=== PATIENT | male | born 1950 | race Caucasian/White ===

== ENCOUNTER 2020-04-27 19:08 | Inpatient (IN) | payer MEDICARE, OTHER ==
[2020-04-27] MEDS ORDERED: ACETAMINOPHEN TAB 325 MG TAB PO PRN (22:52)
[2020-04-27] MEDS ORDERED: ALBUTEROL HFA INHALER INHALATION PRN (23:00)
[2020-04-27] MEDS ORDERED: BENZONATATE 100 MG CAP PO PRN (23:00)
[2020-04-27] MEDS ORDERED: ONDANSETRON 4 MG/2 ML VIAL IVP PRN (23:00)
[2020-04-28] MEDS: LEVOTHYROXINE 125 MCG TAB PO SCH (05:55)
--- NOTE | 2020-04-28 07:23 | XR ---
EXAMINATION TYPE: XR chest 1V portable DATE OF EXAM: 04/28/2020 HISTORY: possible covid 19 pneumonia. REFERENCE: Previous study dated 04/27/2020. FINDINGS: There is a linear opacity in the right midlung. Lungs otherwise clear. Pleural space are cl ear. The heart is not enlarged. IMPRESSION: I CANNOT EXCLUDE AN EARLY INFILTRATE IN THE RIGHT MIDLUNG.
[2020-04-28 07:44] LABS: Basophils % (A) 0 %; Eosinophils % (A) 0 %; Lymphocytes # (A) 0.5 k/uL (1.0-4.8); Lymphocytes % (A) 21 %; MCH 29.7 pg (25.0-35.0); MCHC 33.4 g/dL (31.0-37.0); MCV 88.8 fL (80.0-100.0); Mean Platelet Volume 7.3; Monocytes # (A) 0.3 k/uL (0-1.0); Monocytes % (A) 11 %; Neutrophils # (A) 1.7 k/uL (1.3-7.7); Neutrophils % (A) 66 %; Platelet Count 137 k/uL (150-450); RBC 4.73 m/uL (4.30-5.90); RDW 12.6 % (11.5-15.5); WBC 2.5 k/uL (3.8-10.6)
[2020-04-28 07:58] LABS: Calcium 7.4 mg/dL (8.4-10.2); Potassium 4.4 mmol/L (3.5-5.1)
[2020-04-28] MEDS: amLODIPine 10 MG TAB PO SCH (08:14)
[2020-04-28] MEDS: FAMOTIDINE 20 MG TAB PO SCH ×2 (08:14→21:08)
[2020-04-28] MEDS: ASPIRIN 81 MG PO SCH (08:14)
[2020-04-28] MEDS ORDERED: HEPARIN SODIUM,PORCINE 5,000 UNIT/ML 1 ML VIAL SQ SCH (09:00)
--- NOTE | 2020-04-28 09:07 | P.HPIM ---
History of Present Illness This is a pleasant 69 years old male with multiple medical problems as below. Patient presents because of respiratory symptoms. Patient has been having coughing with no much of phlegm and generalized weakness for about one week His was recently diagnosed with gallbladder infection. 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 He denies chest pain vitals and labs are reviewed, his saturation 94% on 3 L oxygen via nasal cannula. showing low WBC of 2.5K, lymphopenia and 0.5. sodium slightly low at 33, creatinine normal. Chest x-ray: Possible early infiltrate in the right mid lung Review of Systems CONSTITUTIONAL: No fever, no malaise, no fatigue. HEENT: No recent visual problems or hearing problems. Denied any sore throat. CARDIOVASCULAR: No orthopnea, PND, no palpitations, no syncope. PULMONARY: no hemoptysis. GASTROINTESTINAL: No diarrhea, no nausea, no vomiting, no abdominal pain. Normoactive bowel sounds. NEUROLOGICAL: No headaches, no weakness, no numbness. HEMATOLOGICAL: Denies any bleeding or petechiae. GENITOURINARY: Denies any burning micturition, frequency, or urgency. MUSCULOSKELETAL/RHEUMATOLOGICAL: Denies any joint pain, swelling, or any muscle pain. ENDOCRINE: Denies any polyuria or polydipsia. Past Medical History Past Medical History: Asthma, Hypertension, Thyroid Disorder Additional Past Medical History / Comment(s): deviated septum, History of Any Multi-Drug Resistant Organisms: None Reported Past Anesthesia/Blood Transfusion Reactions: No Reported Reaction Past Psychological History: No Psychological Hx Reported Smoking Status: Never smoker Past Alcohol Use History: None Reported Past Drug Use History: None Reported Medications and Allergies Home Medications Medication Instructions Recorded Confirmed Type Albuterol Sulfate [Proventil Hfa] 2 puff INHALATION RT-Q6H PRN 04/27/20 04/27/20 History Aspirin EC [Ecotrin Low Dose] 81 mg PO DAILY 04/27/20 04/27/20 History Budesonide/Formoterol Fumarate 2 puff INHALATION RT-BID 04/27/20 04/27/20 History [Symbicort 80-4.5 Mcg Inhaler] Levothyroxine Sodium [Synthroid] 125 mcg PO DAILY 04/27/20 04/27/20 History Xeomega Complex (Doterra) 4 cap PO DAILY 04/27/20 04/27/20 History amLODIPine [Norvasc] 10 mg PO DAILY 04/27/20 04/27/20 History Allergies Allergy/AdvReac Type Severity Reaction Status Date / Time cephalexin [From Keflex] Allergy Swelling Verified 04/27/20 22:26 sulfamethoxazole Allergy Unknown Verified 04/27/20 22:26 [From Bactrim] Childhood trimethoprim [From Bactrim] Allergy Unknown Verified 04/27/20 22:26 Childhood Physical Exam Vitals: Vital Signs Temp Pulse Resp BP Pulse Ox 04/28/20 05:09 98.0 F 62 18 115/68 94 L 04/28/20 00:34 98.2 F 60 18 108/68 94 L 04/27/20 22:20 98.0 F 64 20 143/79 93 L Intake and Output 04/27/20 04/28/20 04/28/20 22:59 06:59 14:59 Output Total 325 Balance -325 Output: Urine 325 Other: # Voids 1 Weight 89.4 kg 89.4 kg GENERAL: The patient is alert and oriented x3, not in any acute distress. Well developed, well nourished. HEENT: Pupils are round and equally reacting to light. EOMI. No scleral icterus. No conjunctival pallor. Normocephalic, atraumatic. No pharyngeal erythema. No thyromegaly. CARDIOVASCULAR: S1 and S2 present. No murmurs, rubs, or gallops. PULMONARY: Chest is clear to auscultation, no wheezing or crackles. ABDOMEN: Soft, nontender, nondistended, normoactive bowel sounds. No palpable or ganomegaly. MUSCULOSKELETAL: No joint swelling or deformity. EXTREMITIES: No cyanosis, clubbing, or pedal edema. NEUROLOGICAL: Gross neurological examination did not reveal any focal deficits. SKIN: No rashes. No petechiae Results CBC & Chem 7: 04/28/20 07:19 04/28/20 07:19 Labs: Abnormal Lab Results - Last 24 Hours (Table) 04/28/20 04/28/20 Range/Units 07: 07:19 WBC 2.5 L (3.8-10.6) k/uL Plt Count 137 L (150-450) k/uL Lymphocytes # 0.5 L (1.0-4.8) k/uL Sodium 133 L (137-145) mmol/L Carbon Dioxide 21 L (22-30) mmol/L BUN 26 H (9-20) mg/dL Glucose 104 H (74-99) mg/dL Calcium 7.4 L (8.4-10.2) mg/dL Thrombosis Risk Factor Assmnt - Choose All That Apply Any of the Below Risk Factors Present?: No Other Risk Factors: No Other congenital or acquired thrombophilia - If yes, enter type in comment: No Thrombosis Risk Factor Assessment Level: Very Low Risk Assessment and Plan Assessment: Suspected covid infection, possible early infiltrate in the right mid lung Hypertension Hypothyroidism History of asthma Plan: This is a pleasant 69 years old male who presents with suspected Covid. Continue with breathing treatment through a ventral inhaler and Symbicort inhaler. We'll consult pulmonary team Labs and medication were reviewed.. Continue same treatment. Continue with symptomatic treatment. Resume home medication. Monitor lytes and vitals. DVT and GI prophylaxis. Further recommendations of the clinical course of the patient DVT prophylaxis: Lovenox 40 mg daily GI Prophylaxis: Pepcid Prognosis is guarded
[2020-04-28] MEDS: SYMBICORT 80-4.5 MCG INHALER INHALATION SCH ×3 (09:26→21:23)
--- NOTE | 2020-04-28 12:20 | P.CNPUL ---
History of Present Illness Consult date: 04/28/20 Requesting physician: Franko E Marcelo Reason for consult: dyspnea, abnormal CXR/CT (Early infiltrate right midlung) Chief complaint: Weakness History of present illness: This is a pleasant 69-year-old gentleman who has a history of hypertension, hypothyroidism, asthma. He had presented to [place] emergency room yesterday with a 3 to four-day complaints of increased weakness, fatigue, short ness of breath. His had recently tested positive for CoVID 19. He was screened earlier this week at the [place] [facility]. Results not available. He was transferred here as a direct admit from [place] [facility]. Chest x-ray reveals possible early infiltrate in the right midlung. White count 2.5. Hemoglobin 14.0. Lymphocytes 0.5. Sodium 133. Potassium 4.4. Creatinine 1.25. He's been initiated on Symbicort, albuterol, Tessalon Perles. He is seen today in consultation on the selective care unit. Awake and alert in no acute distress. Breathing a bit easier today compared to yesterday. He remains afebrile. He is maintaining O2 saturations in the 90s on 3 L/m per nasal cannula. Review of Systems REVIEW OF SYSTEMS: CONSTITUTIONAL: Generalized fatigue and weakness. Denies any recent significant weight loss or weight gain. EYES: Denies change in vision. EARS, NOSE, MOUTH, THROAT: Denies headaches, denies sore throat. CARDIOVASCULAR: Denies chest pain, palpitations or syncopal episodes. RESPIRATORY: Positive for shortness of breath, cough, congestion no hemoptysis. GASTROINTESTINAL: Denies change in appetite, denies abdominal pain GENITOURINARY: Denies hematuria, denies infections. MUSKULOSKELETAL: Denies pain, denies swelling. INTEGUMENTARY: Denies rash, denies eczema. NEUROLOGICAL: Denies recent memory loss, no recent seizure activity. PSYCHIATRIC: Denies anxiety, denies depression. HEMATOLOGIC/LYMPHATIC: Denies anemia, denies enlarged lymph nodes. Past Medical History Past Medical History: Asthma, Hypertension, Thyroid Disorder Additional Past Medical History / Comment(s): deviated septum, History of Any Multi-Drug Resistant Organisms: None Reported Past Anesthesia/Blood Transfusion Reactions: No Reported Reaction Past Psychological History: No Psychological Hx Reported Smoking Status: Never smoker Past Alcohol Use History: None Reported Past Drug Use History: None Reported Medications and Allergies Home Medications Medication Instructions Recorded Confirmed Type Albuterol Sulfate [Proventil Hfa] 2 puff INHALATION RT-Q6H PRN 04/27/20 04/27/20 History Aspirin EC [Ecotrin Low Dose] 81 mg PO DAILY 04/27/20 04/27/20 History Budesonide/Formoterol Fumarate 2 puff INHALATION RT-BID 04/27/20 04/27/20 History [Symbicort 80-4.5 Mcg Inhaler] Levothyroxine Sodium [Synthroid] 125 mcg PO DAILY 04/27/20 04/27/20 History Xeomega Complex (Doterra) 4 cap PO DAILY 04/27/20 04/27/20 History amLODIPine [Norvasc] 10 mg PO DAILY 04/27/20 04/27/20 History Allergies Allergy/AdvReac Type Severity Reaction Status Date / Time cephalexin [From Keflex] Allergy Swelling Verified 04/27/20 22:26 sulfamethoxazole Allergy Unknown Verified 04/27/20 22:26 [From Bactrim] Childhood trimethoprim [From Bactrim] Allergy Unknown Verified 04/27/20 22:26 Childhood Physical Exam Vitals: Vital Signs Temp Pulse Resp BP Pulse Ox 04/28/20 08:00 96.4 F L 60 18 113/63 96 04/28/20 05:09 98.0 F 62 18 115/68 94 L 04/28/20 00:34 98.2 F 60 18 108/68 94 L 04/27/20 22:20 98.0 F 64 20 143/79 93 L Intake and Output 04/27/20 04/28/20 04/28/20 22:59 06:59 14:59 Intake Total 240 Output Total 325 Balance -325 240 Intake: Oral 240 Output: Urine 325 Other: # Voids 1 Weight 89.4 kg 89.4 kg GENERAL EXAM: Alert, pleasant 61-year-old gentleman, on 3 L nasal cannula, comfortable in no apparent distress. HEAD: Normocephalic. EYES: Normal reaction of pupils, equal size. NOSE: Clear with pink turbinates. THROAT: No erythema or exudates. NECK: No masses, no JVD. CHEST: No chest wall deformity. LUNGS: Equal air entry with no crackles, wheeze, rhonchi or dullness. CVS: S1 and S2 normal with no audible murmur, regular rhythm. ABDOMEN: No hepatosplenomegaly, normal bowel sounds, no guarding or rigidity. SPINE: No scoliosis or deformity SKIN: No rashes CENTRAL NERVOUS SYSTEM: No focal deficits, tone is normal in all 4 extremities. EXTREMITIES: There is no peripheral edema. No clubbing, no cyanosis. Peripheral pulses are intact. Results - Laboratory Findings CBC and BMP: 04/28/20 07:04/28/20 07:19 Abnormal lab findings: Abnormal Labs 04/28/20 04/28/20 07:19 07:19 WBC 2.5 L Plt Count 137 L Lymphocytes # 0.5 L Sodium 133 L Carbon Dioxide 21 L BUN 26 H Glucose 104 H Calcium 7.4 L - Diagnostic Findings Chest x-ray: image reviewed Assessment and Plan Assessment: 1 Acute hypoxemic respiratory failure secondary to possible early right midlung pneumonia, rule out CoVID 19 infection 2 Generalized fatigue and weakness secondary to above 3 Acute exacerbation of mild intermittent chronic bronchial asthma secondary to above 4 History of hypertension 5 Hypothyroidism 6 Gastroesophageal reflux disease Plan: The patient was seen and evaluated by Dr. Thorne Chest x-ray and labs reviewed Covid 19 test pending Obtain inflammatory markers Continue isolation precautions Continue Symbicort and albuterol Titrate down the FiO2 as tolerated Lovenox for DVT prophylaxis Pepcid for GI prophylaxis We will continue to follow and make further recommendations based on his clinical status I, the cosigning physician, performed a history & physical examination of the patient. Lungs sounds are clear. Maintaining good O2 saturations in the 90s on 3 L/m per nasal cannula. I discussed the assessment and plan of care with my nurse practitioner, Chen Johnson. I attest to the above note as dictated by her. Time with Patient: Greater than 30
[2020-04-28] MEDS: ENOXAPARIN 40 MG/0.4 ML SYRINGE SQ SCH (12:50)
[2020-04-28 13:06] VITALS: BMI 28.3
[2020-04-29] MEDS: LEVOTHYROXINE 125 MCG TAB PO SCH (06:16)
[2020-04-29 06:59] LABS: Basophils % (A) 0 %; Eosinophils % (A) 0 %; HCT 41.2 % (39.0-53.0); HGB 13.7 gm/dL (13.0-17.5); Lymphocytes # (A) 0.7 k/uL (1.0-4.8); Lymphocytes % (A) 19 %; MCH 29.5 pg (25.0-35.0); MCHC 33.2 g/dL (31.0-37.0); MCV 88.9 fL (80.0-100.0); Monocytes # (A) 0.2 k/uL (0-1.0); Monocytes % (A) 5 %; Neutrophils # (A) 2.6 k/uL (1.3-7.7); Neutrophils % (A) 75 %; Platelet Count 137 k/uL (150-450); RBC 4.63 m/uL (4.30-5.90); RDW 12.5 % (11.5-15.5); WBC 3.5 k/uL (3.8-10.6)
[2020-04-29 07:21] LABS: C Reactive Protein 47.6 mg/L (<10.0); Calcium 7.4 mg/dL (8.4-10.2); Potassium 4.1 mmol/L (3.5-5.1)
[2020-04-29] MEDS: ASPIRIN 81 MG PO SCH (08:47)
[2020-04-29] MEDS: FAMOTIDINE 20 MG TAB PO SCH ×2 (08:47→20:38)
[2020-04-29] MEDS: amLODIPine 10 MG TAB PO SCH (08:47)
[2020-04-29] MEDS: ENOXAPARIN 40 MG/0.4 ML SYRINGE SQ SCH ×2 (08:48→11:28)
[2020-04-29] MEDS: SYMBICORT 80-4.5 MCG INHALER INHALATION SCH ×2 (08:54→20:04)
[2020-04-29] MEDS: dexAMETHasone 2 MG TAB PO SCH (11:37)
--- NOTE | 2020-04-29 15:04 | P.PN ---
Subjective This is a pleasant 69 years old male with multiple medical problems as below. Patient presents because of respiratory symptoms. Patient has been having coughing with no much of phlegm and generalized weakness for about one week His was recently diagnosed with gallbladder infection. 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 He denies chest pain vitals and labs are reviewed, his saturation 94% on 3 L oxygen via nasal cannula. showing low WBC of 2.5K, lymphopenia and 0.5. sodium slightly low at 33, creatinine normal. Chest x-ray: Possible early infiltrate in the right mid lung 01/29/2020 Patient is breathing quietly, slightly tachypneic. He still have coughing. He is on inhaler. Today has low-grade temperature of 100.1 this afternoon. He is still on 3 L and saturating 94% . rest of vitals are stable Labs showing WBC of 3.5K, platelet slightly low at 1:30 7K, his lymphopenic, sodium is 1:30, creatinine 1.3, d-dimer is negative at 0.49, lactate dehydrogenase is elevated at 747 and C-reactive protein elevated at 47.6 He was a started today on dexamethasone, we'll add doxycycline As per staff patient has been informed by the health Department that he has positive result for Covid 19, other Covid test his been requested today. We'll try to get documented results from the health department Review of Systems CONSTITUTIONAL: No fever, no malaise, no fatigue. HEENT: No recent visual problems or hearing problems. Denied any sore throat. CARDIOVASCULAR: No orthopnea, PND, no palpitations, no syncope. PULMONARY: no hemoptysis. GASTROINTESTINAL: No diarrhea, no nausea, no vomiting, no abdominal pain. Normoactive bowel sounds. NEUROLOGICAL: No headaches, no weakness, no numbness. HEMATOLOGICAL: Denies any bleeding or petechiae. GENITOURINARY: Denies any burning micturition, frequency, or urgency. MUSCULOSKELETAL/RHEUMATOLOGICAL: Denies any joint pain, swelling, or any muscle pain. ENDOCRINE: Denies any polyuria or polydipsia. Active Medications Generic Name Dose Route Start Last Admin Trade Name Freq PRN Reason Stop Dose Admin Acetaminophen 650 mg 04/27/20 22:52 04/29/20 11:37 Tylenol Tab PO 650 mg Q6HR PRN Administration Fever and/ or Pain Albuterol Sulfate 2 puff 04/27/20 23:00 Ventolin Hfa Inhaler INHALATION RT-Q6H PRN Shortness Of Breath Amlodipine Besylate 10 mg 04/28/20 09:00 04/29/20 08:47 Norvasc PO 10 mg DAILY CARLOS Administration Aspirin 81 mg 04/28/20 09:00 04/29/20 08:47 Aspirin PO 81 mg DAILY CARLOS Administration Benzonatate 100 mg 04/27/20 23:00 04/28/20 08:14 Tessalon Perles PO 100 mg TID PRN Administration Cough Budesonide/Formoterol Fumarate 2 puff 04/28/20 08:00 04/29/20 08:54 Symbicort 80-4.5 Mcg Inhaler INHALATION Not Given RT-BID [facility] Dexamethasone 6 mg 04/29/20 11:15 04/29/20 11:37 Hexadrol PO 6 mg DAILY CARLOS Administration Enoxaparin Sodium 80 mg 04/29/20 21:00 Lovenox SQ BID [facility] Famotidine 20 mg 04/28/20 09:00 04/29/20 08:47 Pepcid PO 20 mg BID [facility] Administration Doxycycline Hyclate 100 mg/ 100 mls @ 100 mls/hr 04/29/20 21:00 Sodium Chloride IVPB Q12HR [facility] Levothyroxine Sodium 125 mcg 04/28/20 06:30 04/29/20 06:16 Synthroid PO 125 mcg DAILY@0630 [facility] Administration Ondansetron HCl 4 mg 04/27/20 23:00 Zofran IVP Q6HR PRN Nausea And Vomiting Objective - Vital Signs Vital signs: Vital Signs Temp 100.1 F H 04/29/20 12:00 Pulse 65 04/29/20 12:00 Resp 20 04/29/20 12:00 BP 119/72 04/29/20 12:00 Pulse Ox 90 L 04/29/20 14:08 Intake & Output 04/28/20 04/29/20 04/29/20 18:59 06:59 18:59 Intake Total 240 1260 1480 Balance 240 1260 1480 Weight 89.4 kg 87 kg Intake: Oral 240 1260 1480 Other: Voiding Method Toilet # Voids 2 3 # Bowel Movements 0 - Exam GENERAL: The patient is alert and oriented x3, not in any acute distress. Well developed, well nourished. HEENT: Pupils are round and equally reacting to light. EOMI. No scleral icterus. No conjunctival pallor. Normocephalic, atraumatic. No pharyngeal erythema. No thyromegaly. CARDIOVASCULAR: S1 and S2 present. No murmurs, rubs, or gallops. PULMONARY: Chest is clear to auscultation, no wheezing or crackles. ABDOMEN: Soft, nontender, nondistended, normoactive bowel sounds. No palpable organomegaly. MUSCULOSKELETAL: No joint swelling or deformity. EXTREMITIES: No cyanosis, clubbing, or pedal edema. NEUROLOGICAL: Gross neurological examination did not reveal any focal deficits. SKIN: No rashes. no petechiae. - Labs CBC & Chem 7: 04/29/20 06:37 04/29/20 06:37 Labs: Abnormal Lab Results - Last 24 Hours (Table) 04/29/20 04/29/20 Range/Units 06:37 06:37 WBC 3.5 L (3.8-10.6) k/uL Plt Count 137 L (150-450) k/uL Lymphocytes # 0.7 L (1.0-4.8) k/uL Sodium 130 L (137-145) mmol/L BUN 28 H (9-20) mg/dL Creatinine 1.31 H (0.66-1.25) mg/dL Calcium 7.4 L (8.4-10.2) mg/dL Lactate Dehydrogenase 747 H (313-618) U/L C-Reactive Protein 47.6 H (<10.0) mg/L Assessment and Plan Assessment: Suspected covid infection, possible early infiltrate in the right mid lung. P atient has been told by the health Department is positive for Covid infection Acute hypoxic respiratory failure secondary to above Hypertension Hypothyroidism History of asthma Plan: This is a pleasant 69 years old male who presents with suspected Covid. Continue with breathing treatment through a inhaler and Symbicort inhaler. Follow-up recommendation by consult pulmonary team. Continue with dexamethasone, and doxycycline. Get records from health Department regarding his Covid positive test. Follow-up inflammatory markers Labs and medication were reviewed.. Continue same treatment. Continue with symptomatic treatment. Resume home medication. Monitor lytes and vitals. DVT and GI prophylaxis. Further recommendations of the clinical course of the pat ient DVT prophylaxis: Lovenox 40 mg daily GI Prophylaxis: Pepcid Prognosis is guarded
[2020-04-29] MEDS ORDERED: IN SODIUM CHLORIDE 0.9% IV ONE (19:00)
[2020-04-29] MEDS ORDERED: SODIUM CHLORIDE 0.9% IV ONE (19:33)
[2020-04-29] MEDS ORDERED: [UNRECOGNIZED DRUG - OTHER] IV ONE (19:33)
[2020-04-29] MEDS: DOXYCYCLINE 100 MG in SODIUM CHLORIDE 0.9% 100 ML IVPB SCH (20:36)
[2020-04-29] MEDS: ENOXAPARIN 80 MG/0.8 ML SYRINGE SQ SCH (20:37)
[2020-04-30] MEDS: LEVOTHYROXINE 125 MCG TAB PO SCH (06:08)
[2020-04-30 07:33] LABS: Basophils % (A) 0 %; Eosinophils % (A) 0 %; HCT 41.9 % (39.0-53.0); HGB 14.1 gm/dL (13.0-17.5); Lymphocytes # (A) 0.4 k/uL (1.0-4.8); Lymphocytes % (A) 11 %; MCH 29.8 pg (25.0-35.0); MCHC 33.5 g/dL (31.0-37.0); MCV 88.8 fL (80.0-100.0); Mean Platelet Volume 6.8; Monocytes # (A) 0.2 k/uL (0-1.0); Monocytes % (A) 7 %; Neutrophils # (A) 2.7 k/uL (1.3-7.7); Neutrophils % (A) 80 %; Platelet Count 142 k/uL (150-450); RBC 4.72 m/uL (4.30-5.90); RDW 12.5 % (11.5-15.5); WBC 3.4 k/uL (3.8-10.6)
--- NOTE | 2020-04-30 07:35 | P.CONS ---
History of Present Illness - Reason for Consult Consult date: 04/29/20 Covid 19 pneumonia Requesting physician: Alfredo Thorne - Chief Complaint Shortness of breath and fever x 4 days - History of Present Illness Patient is a 69-year-old male with a past medical history significant for asthma In this patient recently diagnosed her with the Covid19 , patient started getting sick on Thursday symptom has been mostly increasing short ness of breath and a fever he also have a cough which has been moderate in intensity and not bringing up any sputum, patient had denies having any nausea or vomiting however he did has slight diarrhea or a day has been poor with persistent symptoms not improving patient presented to the [facility] and subsequently the patient has been transferred to [facility] for further workup with concern for covid 19 pneumonia , patient on presentation to this hospital did have a low-grade fever of 100.1 patient did have leukopenia and lymphopenia, he did have elevated LDH and CRP, chest x-ray with the pulmonary infiltrate was on the right side , patient nasopharyngeal swab came back positive , infectious disease was consulted for further management of underlying viral pneumonia Review of Systems Positive point has been mentioned in the HPI rest of the systems are negative Past Medical History Past Medical History: Asthma, Hypertension, Thyroid Disorder Additional Past Medical History / Comment(s): deviated septum, History of Any Multi-Drug Resistant Organisms: None Reported Past Anesthesia/Blood Transfusion Reactions: No Reported Reaction Past Psychological History: No Psychological Hx Reported Smoking Status: Never smoker Past Alcohol Use History: None Reported Past Drug Use History: None Reported Medications and Allergies Home Medications Medication Instructions Recorded Confirmed Type Albuterol Sulfate [Proventil Hfa] 2 puff INHALATION RT-Q6H PRN 04/27/20 04/27/20 History Aspirin EC [Ecotrin Low Dose] 81 mg PO DAILY 04/27/20 04/27/20 History Budesonide/Formoterol Fumarate 2 puff INHALATION RT-BID 04/27/20 04/27/20 History [Symbicort 80-4.5 Mcg Inhaler] Levothyroxine Sodium [Synthroid] 125 mcg PO DAILY 04/27/20 04/27/20 History Xeomega Complex (Doterra) 4 cap PO DAILY 04/27/20 04/27/20 History amLODIPine [Norvasc] 10 mg PO DAILY 04/27/20 04/27/20 History Allergies Allergy/AdvReac Type Severity Reaction Status Date / Time cephalexin [From Keflex] Allergy Swelling Verified 04/27/20 22:26 sulfamethoxazole Allergy Unknown Verified 04/27/20 22:26 [From Bactrim] Childhood trimethoprim [From Bactrim] Allergy Unknown Verified 04/27/20 22:26 Childhood Physical Exam Vitals: Vital Signs Temp Pulse Resp BP Pulse Ox 04/29/20 15:39 99.5 F 63 18 114/69 93 L 04/29/20 14:08 90 L 04/29/20 12:00 100.1 F H 65 20 119/72 94 L 04/29/20 08:00 99.9 F H 65 24 131/75 94 L 04/29/20 04:00 98.0 F 60 18 124/64 96 04/29/20 00:10 98.2 F 62 20 120/64 96 04/28/20 20:32 98.2 F 77 18 105/56 96 Intake and Output 04/29/20 04/29/20 04/29/20 06:59 14:59 22:59 Intake Total 1020 1480 Balance 1020 1480 Intake: Oral 1020 1480 Other: Voiding Method Toilet # Voids 2 3 Weight 87 kg GENERAL DESCRIPTION: Elderly male lying in bed, no distress. No tachypnea or accessory muscle of respiration use. HEENT: Shows Pallor , no scleral icterus. Oral mucous membrane is dry. No pharyngeal erythema or thrush NECK: Trachea central, no thyromegaly. LUNGS: Unlabored breathing. Coarse crackle in the bases bilaterally. HEART: S1, S2, regular rate and rhythm. No loud murmur ABDOMEN: Soft, no tenderness , guarding or rigidity, no organomegaly EXTREMITIES: No edema of feet. SKIN: No rash, no masses palpable. NEUROLOGICAL: The patient is awake, alert, oriented x3, mood and affect normal. Results CBC & Chem 7: 04/29/20 06:37 04/29/20 06:37 Labs: Abnormal Lab Results - Last 24 Hours (Table) 04/28/20 04/29/20 04/29/20 Range/Units 00:25 06:37 06:37 WBC 3.5 L (3.8-10.6) k/uL Plt Count 137 L (150-450) k/uL Lymphocytes # 0.7 L (1.0-4.8) k/uL Sodium 130 L (137-145) mmol/L BUN 28 H (9-20) mg/dL Creatinine 1.31 H (0.66-1.25) mg/dL Calcium 7.4 L (8.4-10.2) mg/dL Lactate Dehydrogenase 747 H (313-618) U/L C-Reactive Protein 47.6 H (<10.0) mg/L Coronavirus (PCR) Detected H (Not Detected) Assessment and Plan Assessment: 1- patient presented to the hospital with increasing shortness breath cough fever with evidence of pulmonary infiltrate elevated LDH and his CRP and exposure to covid 19 , Representing a case of acute viral pneumonia secondary to the noval coronavirus (1) Pneumonia due to COVID-19 virus Current Visit: Yes Status: Acute Code(s): U07.1 - COVID-19; J12.89 - OTHER VIRAL PNEUMONIA SNOMED Code(s): 927567275 Plan: 1- case has been discussed in detail with the pharmacy department patient to [facility] for Redemsivir which will be started 200 mg day 1 followed by 100 mg daily for 4 more doses 2- dexamethasone 600 g daily 3- Lovenox 4- respiratory support and droplet isolation We will follow on clinical condition and cultures to further adjust medication if needed Thank you for this consultation will follow this patient with you Time with Patient: Greater than 30
[2020-04-30 07:48] LABS: Calcium 7.7 mg/dL (8.4-10.2); Potassium 4.8 mmol/L (3.5-5.1)
[2020-04-30] MEDS: SYMBICORT 80-4.5 MCG INHALER INHALATION SCH (07:59)
--- NOTE | 2020-04-30 07:59 | XR ---
EXAMINATION TYPE: XR chest 1V portable DATE OF EXAM: 04/30/2020 COMPARISON: 04/28/2020 HISTORY: Shortness of breath TECHNIQUE: Single frontal view of the chest is obtained. FINDINGS: There is interval development of patchy infiltrate bilaterally. No pleural effusion or pne umothorax. Heart size stable. Arthropathy of the shoulders. IMPRESSION: Bilateral interval development of patchy infiltrate correlate for pneumonia
[2020-04-30] MEDS: FAMOTIDINE 20 MG TAB PO SCH (08:58)
[2020-04-30] MEDS: dexAMETHasone 2 MG TAB PO SCH (08:58)
[2020-04-30] MEDS: ENOXAPARIN 80 MG/0.8 ML SYRINGE SQ SCH (08:58)
[2020-04-30] MEDS: ASPIRIN 81 MG PO SCH (08:58)
[2020-04-30] MEDS: amLODIPine 10 MG TAB PO SCH (08:58)
[2020-04-30 09:08] VITALS: TEMP 98.1
[2020-04-30] MEDS: DOXYCYCLINE 100 MG in SODIUM CHLORIDE 0.9% 100 ML IVPB SCH (09:23)
[2020-04-30 12:35] LABS: Ferritin 357.4 ng/mL (22.0-322.0)
[2020-04-30 13:03] VITALS: BP 120/76; PULSE 60; RESP 16
--- NOTE | 2020-04-30 15:40 | PN ---
PROGRESS NOTE PULMONARY/CRITICAL CARE PROGRESS NOTE: This is a 69-year-old gentleman who was seen by our group a couple days ago. He has a history of hypertension and hypothyroidism as well as asthma. He apparently presented to the [facility] with a 3-4 day history of increasing weakness, fatigue, and shortness of breath. He apparently had a who tested positive for COVID-19 infection and he was also tested. He apparently turned positive. Currently, he is doing very well. He is currently on room air. Saturations are 90 90% or higher. The patient was given Decadron, also received 1 or 2 doses of REM dust severe the antiviral agent. He feels much improved. He would like to go to go home if possible. I did speak to Dr. Jacobsen about the patient and I said that he could be discharged home having not completed around a severe. Anyway, we will leave that up to the primary service. He is feeling much better. He sort of would like to get out of the hospital if possible. PHYSICAL EXAMINATION: VITAL SIGNS: Current vital signs are reviewed temperature is 98.1, heart rate 60, respiratory rate 16, blood pressure 120/76 mean is 90 room air saturations are being reported at 90%. He appears in no acute distress. There is no audible wheezing, use of accessory muscles or conversational dyspnea. HEENT: Examination is grossly unremarkable. NECK: Supple. Full range of motion. No adenopathy. Neck veins are flat. CARDIOVASCULAR: Examination reveals regular rhythm rate. Heart rate 60. S1, S2 normal. LUNGS: Reveal a few scattered mild rhonchi. No wheezes or crackles. Breath sounds equal bilaterally. Actually air exchange is excellent. ABDOMEN: Soft bowel sounds are heard. There is no masses or tenderness. EXTREMITIES: Intact. No cyanosis, clubbing, or edema. SKIN: Without rash. NEUROLOGIC: Examination is brief but nonfocal. LAB DATA: Reviewed. White count 3.4, hemoglobin 14.1, hematocrit 41.9, platelet count 142,000. His lymphocyte counts are down. His D-dimer is 0.49, which is in the normal range. Sodium 133, potassium 4.8, chloride 102, CO2 is 27, anion gap is 4, BUN and creatinine were 27 and 1.09. Calcium is 7.7, ferritin 357, LDH 747, C-reactive protein 47.6, procalcitonin 0.15. Rodriguez virus negative. Nasopharyngeal swab was positive. CHEST X-RAY: From today shows patchy infiltrates bilaterally. CURRENT MEDICATIONS: Reviewed. He is on Tylenol, albuterol inhaler, amlodipine, aspirin, Tessalon Perles, Symbicort, Decadron, doxycycline, Lovenox, famotidine, levothyroxine, Remdesivir, and Zofran. ASSESSMENT: 1. Acute hypoxemic respiratory failure, much improved, secondary to bilateral pneumonia secondary to COVID-19 infection. 2. Generalized fatigue and weakness, secondary to #1. 3. Mild acute exacerbation of the patient's underlying chronic bronchial asthma. 4. History of hypertension. 5. Hypothyroidism. 6. Gastroesophageal reflux disease. PLAN: The patient would like to be discharged home. I said it was up to his primary service. He does not need to complete the Remdesivir if he chooses not to. He is to has improved dramatically in the last 24 hours. I would recommend at least 1 more day, but the patient is adament about being discharged home. Again, he could come back to the hospital should he worsen. Again, I think at least 1 more day would be appropriate just to make sure he continues to show improvement. Additional recommendations and suggestions are forthcoming. MMODL / IJN: [id number] / ALEXIS
--- NOTE | 2020-04-30 18:36 | PN ---
PROGRESS NOTE DATE OF SERVICE: 04/30/2020 REASON FOR FOLLOWUP: Acute COVID-19 pneumonia. INTERVAL HISTORY: The patient is afebrile. He did have a low-grade fever of 100.1 yesterday afternoon. On arriving at the floor, I was notified by the nurse taking care of the patient that the patient had already been discharged. Patient is dressed up. He is breathing comfortably, though. No significant chest pain or cough. No vomiting. No abdominal pain or any diarrhea. PHYSICAL EXAMINATION: Blood pressure 120/76, pulse of 60, temperature 98. He is 90% on room air. General description is an elderly male up in the room in no distress. RESPIRATORY SYSTEM: Unlabored breathing with decreased intensity of breath sounds. No wheeze. HEART: S1, S2. Regular rate and rhythm. ABDOMEN: Soft. No tenderness. LABS: Hemoglobin is 14.1, white count 3.4, BUN of 27, creatinine 1.09. DIAGNOSTIC IMPRESSION AND PLAN: Patient with acute COVID-19 pneumonia. Patient seems to have shown some clinical improvement. Chest x-ray this morning that showed bilateral interval development of patchy infiltrate; correlate for pneumonia. The patient is advised to finish his 5-day course of remdesivir, as he will be at high risk of worsening respiratory status without continued treatment. He is currently being treated with dexamethasone per Pulmonary. Overall prognosis remains guarded. MMODL / IJN: [id number] /
[2020-04-30] MEDS ORDERED: SODIUM CHLORIDE 0.9% IV SCH (19:00)
[2020-04-30] MEDS ORDERED: [UNRECOGNIZED DRUG - OTHER] IV SCH (19:00)
--- NOTE | 2020-05-01 14:53 | P.DS ---
<Evelina Angelo - Last Filed: 05/01/20 14:26> Providers Expected date of discharge: 05/01/20 Hospital Course: Final diagnosis Suspected covid infection, recent positive testing, possible early infiltrate in the right mid lung Hypertension Hypothyroidism History of asthma Discharge disposition Patient is being discharged in a stable condition with guarded prognosis to home. Patient will continue on a short course of oral steroids and instructed to continue with his antiviral medications he was started on. Patient provided a prescription for repeat Covid testing in 2 weeks. Patient will follow-up at the [facility]. Total time taken is 35 minutes. History of present illness This is an 69-year-old male who was recently admitted with increasing shortness of breath along with some coughing and phlegm production and generalized weakness and was being closely monitored. She was recently diagnosed with Covid 19 infection and was also positive. Patient does have a history of asthma and follows with the cardiopulmonary technician and eeg tech from another facility. Patient was initiated on remdesivir and was instructed to continue with this medication to complete a five-day course. Patient will also continue with the steroids to complete the course in the outpatient setting. Patient instructed to continue to isolate for 7-14 more days. Patient instructed to follow-up with his PCP and was also given a prescription for repeat Covid testing in 2 weeks. Patient may use a drive-through accepting facility for the testing. Currently no reports of chest pain, worsening shortness of breath, or palpitations. Patient is afebrile. No reports of nausea or vomiting and patient is tolerating diet. Guarded prognosis. On exam vital signs are stable. Temp is 98.1F, pulse is 60, respirations are 16, blood pressure is 120/76, oxygen saturation is 90% on room air. Cardio S1, S2 are muffled. Respiratory shows diminished breath sounds at the bases with a few scattered rhonchi noted. Abdomen is soft and nontender. Nervous system shows no focal deficits. Please refer to medication reconciliation sheet for a list of medications. Patient Condition at Discharge: Stable Plan - Discharge Summary Discharge Rx Participant: No New Discharge Prescriptions: New RX: dexAMETHasone [Hexadrol] 6 mg PO DAILY 5 Days #5 tab RX: Acetaminophen Tab [Tylenol] 650 mg PO Q6HR PRN tab PRN Reason: Fever And/ Or Pain Continue RX: Budesonide/Formoterol Fumarate [Symbicort 80-4.5 Mcg Inhaler] 2 puff INHALATION RT-BID RX: Albuterol Sulfate [Proventil Hfa] 2 puff INHALATION RT-Q6H PRN PRN Reason: Shortness Of Breath RX: amLODIPine [Norvasc] 10 mg PO DAILY Xeomega Complex (Doterra) 4 cap PO DAILY RX: Levothyroxine Sodium [Synthroid] 125 mcg PO DAILY RX: Aspirin EC [Ecotrin Low Dose] 81 mg PO DAILY Discharge Medication List RX: Albuterol Sulfate [Proventil Hfa] 2 puff INHALATION RT-Q6H PRN 04/27/20 [History] RX: Aspirin EC [Ecotrin Low Dose] 81 mg PO DAILY 04/27/20 [History] RX: Budesonide/Formoterol Fumarate [Symbicort 80-4.5 Mcg Inhaler] 2 puff INHALATION RT-BID 04/27/20 [History] RX: Levothyroxine Sodium [Synthroid] 125 mcg PO DAILY 04/27/20 [History] RX: amLODIPine [Norvasc] 10 mg PO DAILY 04/27/20 [History] Xeomega Complex (Doterra) 4 cap PO DAILY 04/27/20 [History] RX: Acetaminophen Tab [Tylenol] 650 mg PO Q6HR PRN tab 04/30/20 [Rx] RX: dexAMETHasone [Hexadrol] 6 mg PO DAILY 5 Days #5 tab 04/30/20 [Rx] Follow up Appointment(s)/Referral(s): [facility], [Other] - 1 Week (Please call and schedule a follow up appointment with your [facility]) Ambulatory/Diagnostic Orders: Coronavirus SARS CoV-2 by PCR [LAB.AMB] Time Frame: 2 Weeks, Location: None Selected Activity/Diet/Wound Care/Special Instructions: COVID precautions-form given Activity Limited until follow-up Continue to isolate in the home for at least 10-14 days and maintain strict social distancing Follow-up with primary care provider Repeat Covid testing and prescription provided in 2 weeks Continue current diet Encourage fluids and rest Discharge Disposition: HOME SELF-CARE <Nimo Mendes - Last Filed: 05/13/20 16:17> Providers Date of admission: 04/27/20 21:34 Expected date of discharge: 04/30/20 Attending physician: Miguelina Bolanos Consults: 04/27/20 23:35 Consult Physician Routine Consulting Provider: Filiberto Coello Consult Reason/Comments: shortness of breath, possible covid Do you want consulting provider notified?: Yes, Notify in am Placement Type Exists?: Yes 04/29/20 10:59 Consult Physician Routine Consulting Provider: Cedric Michelle Consult Reason/Comments: possible covid Do you want consulting provider notified?: Yes Primary care physician: Physician Nonstaff Hospital Course: Date of Discharge 04/30/20
== END 2020-04-30 17:49 | disposition home or self-care (01) | DRG 177 ==
LOC: 3SCARD 21:34 → OBSVTOIN 21:34
PROVIDERS: ADMIT Hospitalist; ATTEND Hospitalist
DX: U07.1 COVID-19 (principal); J12.89 Other viral pneumonia; J96.01 Acute respiratory failure with hypoxia; J45.901 Unspecified asthma with (acute) exacerbation; I10 Essential (primary) hypertension; E03.9 Hypothyroidism, unspecified; K21.9 Gastro-esophageal reflux disease without esophagitis; D72.810 Lymphocytopenia; Z79.51 Long term (current) use of inhaled steroids; Z79.82 Long term (current) use of aspirin; Z79.890 Hormone replacement therapy; Z79.899 Other long term (current) drug therapy; Z88.1 Allergy status to other antibiotic agents; Z88.2 Allergy status to sulfonamides
CPT/HCPCS: 71045; 80048; 82728; 83615; 84145; 85025; 85379; 86140; 94640